=== PATIENT | female | born 1995 | race Two or more races ===

== ENCOUNTER 2024-10-23 13:03 | Emergency (ER) | payer OTHER ==
[~2024-10-23] VITALS: Ht 160 cm; Wt 71.7 kg
[2024-10-23] MEDS ORDERED: LEVO-T200 MCG (14:01)
[2024-10-23 14:02] VITALS: BP 113/81; O2SAT 100
[2024-10-23] MEDS ORDERED: ZYRTEC10 MG (14:02)
[2024-10-23 16:17] LABS: EOS # 0.67 (0.04-0.54); EOS % 6.9 % (0.7-7.0); LYMPH # 2.23 (1.18-3.74); LYMPH % 22.9 % (19.3-53.1); MEAN PLATELET VOLUME 10.10 fl (9.4-12.4); MONO # 0.51 (0.24-0.82); MONO % 5.2 % (4.7-12.5); NEUT # 6.08 (1.56-6.13); NEUT % 62.5 % (34.0-71.1); RED CELL DISTRIBUTION WIDTH 12.4 % (11.6-14.4)
[2024-10-23 16:20] LABS: BASO % 2.2 % (0.1-1.2)
[2024-10-23 16:52] LABS: URINE APPEARANCE Clear; URINE BILIRRUBIN Negative (NEGATIVE); URINE BLOOD Large; URINE COLOR Yellow; URINE GLUCOSE Negative (NEGATIVE); URINE KETONE Negative (NEGATIVE); URINE LEUKOCYTE Negative; URINE NITRATE Negative; URINE PROTEIN Negative (NEGATIVE); URINE UROBILINOGEN 0.2 E.U./dl
[2024-10-23 16:53] LABS: URINE BACTERIA 211.1 uL (0.0-1933); URINE EPITHELIAL CELLS 28.5 uL (0.0-38.8); URINE RBC 56.4 uL (0.0-20.8); URINE WBC 16.9 uL (0.0-23.2)
[2024-10-23 17:12] LABS: URINE CAST 0.00 uL (0.0-1.40)
== END 2024-10-23 19:23 | disposition home or self-care (01) ==
LOC: ER 13:03
PROVIDERS: Emergency Medicine
DX: O20.8 Other hemorrhage in early pregnancy (principal); Z3A.01 Less than 8 weeks gestation of pregnancy; E03.8 Other specified hypothyroidism; Z91.013 Allergy to seafood